=== PATIENT | female | born 1950 | race Native Hawaiian/Other Pacific Islander ===

== ENCOUNTER → 2017-09-07 20:23 | Outpatient (CLI) | payer OTHER ==
[~2017-09-07 20:23] MED LIST: FURO40TA93 PO; KLOR-CON M1010 MEQ PO; PROZAC10 MG PO; XYZAL5 MG PO; ZANTAC300 MG PO
== END | disposition home or self-care (01) ==
LOC: AMB 20:23
DX: Z04.1 Encounter for examination and observation following transport accident (principal)

== ENCOUNTER 2017-10-14 13:05 | Outpatient (CLI) | payer OTHER | END 2017-10-14 14:05 | disposition home or self-care (01) | LOC: US 13:05 | DX: R60.0 Localized edema (principal); M79.605 Pain in left leg ==

== ENCOUNTER 2017-10-16 14:13 | Outpatient (CLI) | payer OTHER | END 2017-10-16 21:19 | disposition home or self-care (01) | LOC: LAB 14:13 | DX: R06.02 Shortness of breath (principal) | CPT/HCPCS: 83880 ==

== ENCOUNTER 2017-10-24 10:05 | Outpatient (CLI) | payer OTHER | END 2017-10-24 11:05 | disposition home or self-care (01) | LOC: RAD 10:05 | DX: M79.672 Pain in left foot (principal) ==

== ENCOUNTER 2019-09-05 21:11 | Emergency (ER) | payer OTHER ==
[~2019-09-05] VITALS: Ht 175.3 cm; Wt 87.1 kg
[2019-09-05 21:57] LABS: PLATELET COUNT 162 K/uL (152-353)
[2019-09-05 23:47] VITALS: BP 112/64; TEMP 98.1
== END 2019-09-05 23:47 | disposition home or self-care (01) ==
LOC: ED 21:11
PROVIDERS: Emergency Medicine
DX: K52.89 Other specified noninfective gastroenteritis and colitis (principal); D72.828 Other elevated white blood cell count; R51 Headache
CPT/HCPCS: 80053; 85027; 87502; 96360; 96374; 96375; 99284; J1885; J2405

== ENCOUNTER 2020-04-20 18:30 | Outpatient (CLI) | payer OTHER | END 2020-04-20 19:19 | disposition home or self-care (01) | LOC: LAB 18:30 | DX: I50.9 Heart failure, unspecified (principal) | CPT/HCPCS: 82550; 83880; 84484 ==

== ENCOUNTER 2020-06-25 10:46 | Outpatient (CLI) | payer OTHER | END 2020-06-25 18:50 | disposition home or self-care (01) | LOC: RAD 10:46 | DX: R05 Cough (principal) ==

== ENCOUNTER 2020-06-29 14:00 | Inpatient (IN) | payer OTHER ==
[~2020-06-29] VITALS: Ht 175.3 cm; Wt 86.4 kg
[2020-06-29 16:39] LABS: PLATELET COUNT 116 K/uL (152-353)
[2020-06-29 16:53] VITALS: BP 111/46; TEMP 99.3; Ht 175.3 cm; Wt 86.4 kg
[2020-06-29 17:18] LABS: POTASSIUM 3.7 mmol/L (3.6-5.2); SODIUM 145 mmol/L (136-145)
[2020-06-29 20:00] VITALS: BP 77/54; TEMP 99
[2020-06-29 23:51] VITALS: BP 105/28; TEMP 99.3
[2020-06-30 03:39] VITALS: BP 109/33; TEMP 98.6
[2020-06-30 08:00] VITALS: BP 125/39; TEMP 98.7
[2020-06-30 10:35] LABS: PLATELET COUNT 131 K/uL (152-353)
[2020-06-30 11:01] LABS: POTASSIUM 3.3 mmol/L (3.6-5.2)
[2020-06-30 12:00] VITALS: BP 113/41; TEMP 98.8
[2020-06-30 16:00] VITALS: BP 129/51; TEMP 98.3
[2020-06-30 20:24] VITALS: BP 126/43; TEMP 98.7
[2020-06-30 23:48] VITALS: BP 126/43; TEMP 98.3
[2020-07-01 03:39] VITALS: BP 132/50; TEMP 98.4
[2020-07-01 08:00] VITALS: BP 125/49; TEMP 98.3
[2020-07-01 12:00] VITALS: BP 110/60; TEMP 98.9
[2020-07-01 16:00] VITALS: BP 135/46; TEMP 97.8
[2020-07-01 17:53] LABS: PLATELET COUNT 136 K/uL (152-353)
[2020-07-01 18:41] LABS: POTASSIUM 3.7 mmol/L (3.6-5.2)
[2020-07-01 20:00] VITALS: BP 131/59; TEMP 98.2
[2020-07-02] VITALS: BP 134/54; TEMP 98.6
[2020-07-02 04:00] VITALS: BP 134/64; TEMP 98.3
[2020-07-02 05:54] LABS: PLATELET COUNT 141 K/uL (152-353)
[2020-07-02 06:29] LABS: POTASSIUM 3.6 mmol/L (3.6-5.2)
[2020-07-02 08:00] VITALS: BP 111/40; TEMP 98.2
[2020-07-02 12:00] VITALS: BP 119/47; TEMP 98.7
== END 2020-07-02 14:30 | disposition home or self-care (01) | DRG 177 ==
LOC: MED/SURG 14:00
PROVIDERS: ADMIT Family Medicine
DX: U07.1 COVID-19 (principal); J18.8 Other pneumonia, unspecified organism; I50.20 Unspecified systolic (congestive) heart failure; Z86.73 Personal history of transient ischemic attack (TIA), and cerebral infarction without residual deficits; E86.0 Dehydration; I11.0 Hypertensive heart disease with heart failure; R42 Dizziness and giddiness; R09.02 Hypoxemia
CPT/HCPCS: 36415; 36600; 80053; 82550; 82728; 82805; 83735; 83880; 84100; 84484; 85027; 85379; 86140; 87040; 93005; 94667; 94668; 94760; J0456; J0696; J1650; J2405; J3480

== ENCOUNTER 2021-03-10 13:59 | Outpatient (CLI) | payer OTHER | END 2021-03-10 21:51 | disposition home or self-care (01) | LOC: CT 13:59 | PROVIDERS: ATTEND Ophthalmology | DX: H05.811 Cyst of right orbit (principal) ==

== ENCOUNTER 2021-03-28 09:34 | Outpatient (CLI) | payer OTHER | END 2021-03-28 19:33 | disposition home or self-care (01) | LOC: RAD 09:34 | PROVIDERS: ATTEND Nurse Practitioner Family | DX: Z01.818 Encounter for other preprocedural examination (principal) ==

== ENCOUNTER 2022-09-10 13:09 | Outpatient (CLI) | payer OTHER ==
[2022-09-10 13:34] LABS: PLATELET COUNT 136 K/uL (152-353)
== END 2022-09-10 19:35 | disposition home or self-care (01) ==
LOC: LABW 13:09
PROVIDERS: ATTEND Nurse Practitioner Family
DX: N28.89 Other specified disorders of kidney and ureter (principal)
CPT/HCPCS: 36415; 80053; 85027

== ENCOUNTER 2022-11-15 11:04 | Outpatient (CLI) | payer OTHER ==
[2022-11-15 11:35] LABS: PLATELET COUNT 150 K/uL (152-353)
[2022-11-15 11:47] LABS: POTASSIUM 3.8 mmol/L (3.6-5.2)
== END 2022-11-15 21:43 | disposition home or self-care (01) ==
LOC: LABW 11:04
PROVIDERS: ATTEND Nurse Practitioner Family
DX: N28.89 Other specified disorders of kidney and ureter (principal)
CPT/HCPCS: 36415; 80053; 85027

== ENCOUNTER 2023-01-17 15:24 | Outpatient (CLI) | payer OTHER | END 2023-01-17 18:00 | disposition home or self-care (01) | LOC: RAD 15:24 | PROVIDERS: ATTEND Nurse Practitioner Family | DX: S00.83XA Contusion of other part of head, initial encounter (principal); Y92.89 Other specified places as the place of occurrence of the external cause ==